=== PATIENT | male | born 1960 | race Asian ===

== ENCOUNTER 2020-06-14 22:15 | Emergency (ER) | payer BC ==
[2020-06-14] MEDS ORDERED: Sodium Chloride 0.9% 1,000 ML IV ONE (22:42)
[2020-06-14] MEDS ORDERED: Sodium Chloride 0.9% 10 ML Syringe FLUSH PRN (22:42)
[2020-06-14] MEDS ORDERED: Ketorolac 30 MG/ML SDV IVPUSH ONE (22:42)
--- NOTE | 2020-06-14 22:51 | EDM.PDOC ---
ED HPI GENERAL MEDICAL PROBLEM - General Chief Complaint: Flank Pain Stated Complaint: RIGHT SIDE PAIN/POSSIBLE KIDNEY STONE Time Seen by Provider: 06/14/20 22:41 Source of Information: Reports: Patient History Limitations: Reports: No Limitations - History of Present Illness INITIAL COMMENTS - FREE TEXT/NARRATIVE: Willard is a 59-year-old male presenting to the ED for evaluation of right sided flank pain. Patient has a known history of nephrolithiasis. Patient had a CT in March 2020 showing number of stones in the right kidney and left kidney. He believes he passed the 2 small stones in the left kidney but there is supposedly a larger stone in the right kidney which he is now experiencing pain from. Patient was seen in the clinic earlier today and received his Covid vaccine and was starting to feel some pain after that. His symptoms started with right flank pain around 1500 hrs. and continued to build through the evening. He has had some nausea but no vomiting. He has not had any fever or chills. He has had some diaphoresis with the pain. The pain is in the right flank going down into the penis and testicle. He has not experienced any hematuria that he was aware of. He talked to his primary care provider, Dr. Uriostegui who recommended he come to the ER for evaluation. Right Flank Pain Score (Numeric/FACES): 8 - Related Data Allergies Allergy/AdvReac Type Severity Reaction Status Date / Time No Known Allergies Allergy Verified 03/30/20 14:51 Home Meds: Home Meds Doxazosin Mesylate [Cardura] 2 mg PO DAILY 06/14/20 [History] Pravastatin Sodium 80 mg PO BEDTIME 06/14/20 [History] Tamsulosin HCl 0.4 mg PO DAILY 06/14/20 [History] Past Medical History HEENT History: Reports: Impaired Vision Cardiovascular History: Reports: High Cholesterol, Hypertension Genitourinary History: Reports: Renal Calculus Musculoskeletal History: Reports: Fracture - Past Surgical History GI Surgical History: Reports: Appendectomy Neurological Surgical History: Reports: Spinal Fusion, Thoracic Spine Social & Family History - Tobacco Use Tobacco Use Status *Q: Never Tobacco User - Caffeine Use Caffeine Use: Reports: None - Recreational Drug Use Recreational Drug Use: No ED ROS GENERAL - Review of Systems Review Of Systems: See Below Constitutional: Reports: Diaphoresis HEENT: Reports: No Symptoms Respiratory: Reports: No Symptoms Cardiovascular: Reports: No Symptoms Endocrine: Reports: No Symptoms GI/Abdominal: Reports: Nausea : Reports: Flank Pain (Right-sided flank pain radiating into the testicle and penis.) Musculoskeletal: Reports: No Symptoms Skin: Reports: No Symptoms Neurological: Reports: No Symptoms Psychiatric: Reports: No Symptoms Hematologic/Lymphatic: Reports: No Symptoms Immunologic: Reports: No Symptoms ED EXAM, RENAL/ - Physical Exam Exam: See Below Exam Limited By: No Limitations General Appearance: Alert, Anxious, Moderate Distress Eye Exam: Bilateral Eye: EOMI, PERRL Head: Atraumatic, Normocephalic Neck: Normal Inspection, Supple, Non-Tender Respiratory/Chest: No Respiratory Distress, Lungs Clear, Normal Breath Sounds Cardiovascular: Normal Peripheral Pulses, Regular Rate, Rhythm, No Murmur GI/Abdominal: Normal Bowel Sounds, Soft, Non-Tender Back Exam: Normal Inspection, Full Range of Motion, CVA Tenderness (R) Extremities: Normal Inspection, Normal Range of Motion Neurological: Alert, Oriented, Normal Cognition, No Motor/Sensory Deficits Psychiatric: Normal Affect, Anxious Skin Exam: Warm, Dry Lymphatic: No Adenopathy Course - Vital Signs Last Recorded V/S: Last Vital Signs Temp 36.4 C 06/14/20 22:34 Pulse 100 06/14/20 22:34 Resp 16 06/14/20 22:34 BP 158/88 H 06/14/20 22:34 Pulse Ox 98 06/14/20 22:34 - Orders/Labs/Meds Orders: Active Orders 24 hr Category Date Time Status Sodium Chloride 0.9% [Saline Flush] Med 06/14/20 22:42 Active 10 ml FLUSH ASDIRECTED PRN Saline Lock Insert [OM.PC] Routine Oth 06/14/20 22:42 Ordered Medication Orders Sodium Chloride (Saline Flush) 10 ml FLUSH ASDIRECTED PRN PRN Reason: Keep Vein Open Last Admin: 06/14/20 22:57 Dose: 10 ml Documented by: FEMI Labs: Laboratory Tests 06/14/20 Range/Units 22:50 Urine Color Yellow (YELLOW) Urine Appearance Slightly cloudy A (CLEAR) Urine pH 5.5 (5.0-8.0) Ur Specific [place] 1.025 (1.008-1.030) Urine Protein Negative (NEGATIVE) mg/dL Urine Glucose (UA) Negative (NEGATIVE) mg/dL Urine Ketones Negative (NEGATIVE) mg/dL Urine Occult Blood Moderate H (NEGATIVE) Urine Nitrite Negative (NEGATIVE) Urine Bilirubin Negative (NEGATIVE) Urine Urobilinogen 0.2 (0.2-1.0) EU/dL Ur Leukocyte Esterase Negative (NEGATIVE) Urine RBC 10-20 H (0-5) Urine WBC 0-5 (0-5) Ur Epithelial Cells Not seen Amorphous Sediment Not seen Urine Bacteria Not seen Urine Mucus Not seen Urine Other Meds: Medications Generic Name Dose Route Start Last Admin Trade Name Freq PRN Reason Stop Dose Admin Sodium Chloride 10 ml 06/14/20 22:42 06/14/20 22:57 Saline Flush FLUSH 10 ml ASDIRECTED PRN Administration Keep Vein Open Discontinued Medications Generic Name Dose Route Start Last Admin Trade Name Freq PRN Reason Stop Dose Admin Hydrocodone Bitart/Acetaminophen 1 tab 06/15/20 00:47 [place] 325-5 Mg PO 06/15/20 00:48 ONETIME ONE Sodium Chloride 1,000 mls @ 999 mls/hr 06/14/20 22:42 06/14/20 23:00 Normal Saline IV 06/14/20 23:42 999 mls/hr .BOLUS ONE Administration Ketorolac Tromethamine 30 mg 06/14/20 22:42 06/14/20 22:54 Toradol IVPUSH 06/14/20 22:43 30 mg ONETIME ONE Administration - Radiology Interpretation Free Text/Narrative:: He had the CT of the abdomen pelvis without contrast. There is right-sided hydronephrosis with hydroureter. There is a X by 4 x 4 mm stone in the distal right ureter at the UVJ causing obstruction. There is a 3 mm stone in the renal medullary left. There is no hydronephrosis or hydroureter on the left. - Re-Assessments/Exams Free Text/Narrative Re-Assessment/Exam: 06/15/20 00:07 urinalysis was reviewed showing hematuria but no pyuria. I compared his CT today to the one on 03/30/2020 and it appears that the stone on the right side may be the one that was seen on the previous CT which would be worrisome. They are approximately the same size and location. 06/15/20 01:09 cussed the case with Dr. Yanes urologist from [facility] who recommends the patient follow-up as an outpatient in their clinic. I did fax a facesheet with the patient's information for their clinic nurse. The patient also inquired about closer facilities like [place] and I did provide him with information for Dr. Holland Nichole who is the urologist in [place]. We will send the patient home on hydrocodone for pain control to be used for moderate to severe pain with the baseline being Tylenol and/or ibuprofen. I encouraged him to drink 10 ounces of water every hour is awake. Indications to return to the ED were discussed. He was discharged in satisfactory condition. Departure - Departure Time of Disposition: 01:05 Disposition: Home, Self-Care 01 Clinical Impression: Calcium ureterolithiasis, Hydronephrosis concurrent with and due to calculi of kidney and ureter - Discharge Information *PRESCRIPTION DRUG MONITORING PROGRAM REVIEWED*: No *COPY OF PRESCRIPTION DRUG MONITORING REPORT IN PATIENT MAN: No Instructions: Kidney Stones, [id number] Referrals: Lewis Uriostegui Sr, MD [Primary Care Provider] - Forms: ED Department Discharge Care Plan Goals: I have put through information for the urology clinic at [facility] to contact you to schedule an appointment. You may also contact [facility]. They are urology number is [phone] and their urologist is Dr. Holland Nichole. I would encourage you to call either to schedule appointment as soon as possible. We will provide you with a CD containing the images of your CT of the abdomen and pelvis today that you may take to your appointment for their review. In addition, I have prescribed hydrocodone 5/325 mg tablets which can be taken one 1 tablet every 4-6 hours as needed to control moderate to severe pain. I would continue to take Tylenol or ibuprofen as a baseline pain medicine. I would encourage you to drink at least 10 ounces of water every hour you are awake. This will help the kidneys continue to produce urine and keep the urine dilute. Return to the ED should you develop any fever or chills, nausea or vomiting, or worsening pain. Sepsis Event Note (ED) - Evaluation Sepsis Screening Result: No Definite Risk - Focused Exam Vital Signs: Vital Signs Temp Pulse Resp BP Pulse Ox 06/14/20 22:34 36.4 C 100 16 158/88 H 98 06/14/20 22:25 36.4 C 100 16 158/88 H 98 - Problem List & Annotations (1) Calcium ureterolithiasis SNOMED Code(s): 50754905 Code(s): N20.1 - CALCULUS OF URETER Status: Acute Priority: High Current Visit: Yes (2) Hydronephrosis concurrent with and due to calculi of kidney and ureter SNOMED Code(s): 317309115 Code(s): N13.2 - HYDRONEPHROSIS WITH RENAL AND URETERAL CALCULOUS OBSTRUCTION Status: Acute Priority: High Current Visit: Yes - Problem List Review Problem List Initiated/Reviewed/Updated: Yes - My Orders Last 24 Hours: My Active Orders 06/14/20 22:42 Sodium Chloride 0.9% [Saline Flush] 10 ml FLUSH ASDIRECTED PRN Saline Lock Insert [OM.PC] Routine - Assessment/Plan Last 24 Hours: My Active Orders 06/14/20 22:42 Sodium Chloride 0.9% [Saline Flush] 10 ml FLUSH ASDIRECTED PRN Saline Lock Insert [OM.PC] Routine
--- NOTE | 2020-06-15 | CRLCT ---
INDICATION: Right flank pain. History of kidney stones. CT ABDOMEN AND PELVIS WITHOUT CONTRAST TECHNIQUE: Multidetector CT imaging was performed through the abdomen and pelvis without intravenous contrast administration. Coronal and sagittal reconstructions were generated. COMPARISON: 03/30/2020 CT abdomen and pelvis. FINDINGS: Lower chest: Unchanged elevation of the left diaphragm and mild basilar lung atelectasis. Liver: Within normal limits. Gallbladder and bile ducts: No gallbladder wall thickening or calcified gallstones. No biliary dilation identified. Pancreas: Unremarkable. Spleen: Normal. Adrenals: No nodules or masses. Kidneys, ureters, and urinary bladder: Obstructing 6 x 4 x 4 millimeter stone in the distal right ureter at the ureterovesical junction producing mild dilation of the right ureter and mild right hydronephrosis. Small nonobstructing stones noted in the left kidney lower pole. Unchanged cortical hypodensities of both kidneys consistent with cortical cysts. Mild diffuse wall thickening of the urinary bladder, accentuated by nondistention. Gastrointestinal tract: Normal caliber small bowel without wall thickening or obstruction. Appendix not identified, likely surgically absent. Several diverticula of the sigmoid colon without evidence of diverticulitis. Vascular structures: Normal caliber abdominal aorta with mild atherosclerotic calcifications. Peritoneum: No free air, abscess, or significant free fluid. Lymph nodes: No pathologically enlarged nodes identified. Reproductive organs: Mild to moderate prostatomegaly. Bones: Minor spinal degenerative changes. IMPRESSION: 1. Obstructing 6 x 4 x 4 millimeter stone in the distal right ureter at the UVJ producing mild right hydroureteronephrosis. 2. Nonacute additional findings as detailed above. SHEREEN PIZARRO MD [employer] Dictated by Jerrod Pizarro MD @ 06/14/2020 11:59:13 PM Dictated by: Jerrod Pizarro MD @ 06/14/2020 23:59:45 (Electronically Signed)
[2020-06-15] MEDS ORDERED: Acetaminophen/HYDROcodone 325-5 MG Tab PO ONE (00:47)
== END 2020-06-15 01:42 | disposition home or self-care (01) ==
LOC: JP.ED 22:15
DX: N13.2 Hydronephrosis with renal and ureteral calculous obstruction (principal); E78.00 Pure hypercholesterolemia, unspecified; I10 Essential (primary) hypertension; Z79.899 Other long term (current) drug therapy
CPT/HCPCS: 74176; 81001; 96374; 99284; A9270; J1885; J7030